=== PATIENT | male | born 1985 | race Hispanic/Latino ===

== ENCOUNTER 2020-05-15 10:00 | Outpatient (CLI) | payer BC ==
[2020-05-15 10:11] LABS: Hematocrit 45.4 % (35.5-45.6); Hemoglobin 15.4 gm/dl (11.8-15.2); Mean Corpuscular HGB Conc 34 % (32-34); Mean Corpuscular Volume 91 fl (84-94); Platelet Count 258 K/mm3 (140-440); Red Blood Count 5.01 M/mm3 (3.65-5.03); Red Cell Distribution Width 13.6 % (13.2-15.2)
[2020-05-15 10:31] LABS: BUN/Creatinine Ratio 20; Blood Urea Nitrogen 16 mg/dL (9-20); Calcium 9.3 mg/dL (8.4-10.2); Hemolysis Index 17
[2020-05-15 15:18] VITALS: BP 147/86
== END 2020-05-15 12:00 | disposition home or self-care (01) ==
LOC: LAB 10:00 → EDSTATUS 05-19 11:00
PROVIDERS: ATTEND Plastic Surgery
DX: U07.1 COVID-19 (principal); M79.3 Panniculitis, unspecified
CPT/HCPCS: 36415; 80048; 85027; U0003